=== PATIENT | male | born 1955 | race African-American/Black ===

== ENCOUNTER 2016-12-18 17:53 | Inpatient (IN) | payer MEDICAID ==
[~2016-12-18] VITALS: Ht 180.3 cm; Wt 39.0 kg
[2016-12-18] MEDS ORDERED: SODIUM CHLORIDE 0.9% 1,000 ML IV ONE ×2 (18:04→19:26)
[2016-12-18] MEDS ORDERED: METHYLPREDNISOLONE SOD SUCC 125 MG/2 ML VIAL IV STA (18:06)
[2016-12-18] MEDS ORDERED: IPRATROPIUM BROMIDE (0.02%) 0.5MG/2.5ML NEB HHN STA (18:06)
[2016-12-18] MEDS ORDERED: ALBUTEROL (0.083%) 2.5MG/3ML NEB HHN STA (18:06)
[2016-12-18 18:31] LABS: BG BASE EXCESS -6.6 mmol/L (-2.0-2.0); BG CARBOXYHEMOGLOBIN 0.8 % (0.5-1.5); BG DEOXYHEMOGLOBIN 6.5 % (0.0-5.0); BG FRACTION INSPIRED OXYGEN 28; BG HCO3 ACT 17.5 mmol/L (22.0-26.0); BG METHEMOGLOBIN 0.3 % (0.0-1.5); BG OXYGEN SATURATION 93.4 % (92.0-98.5); BG OXYHEMOGLOBIN 92.4 % (94.0-97.0); BG PCO2 31.8 mmHg (35.0-45.0); BG PH 7.359 (7.350-7.450); BG PO2 71.8 mmHg (75.0-100.0); BG SAMPLE SITE RIGHT BRACHIAL; BG TOTAL HEMOGLOBIN 16.7 g/dL (12.0-18.0); BG VENT MODE NASAL CANNULA
[2016-12-18 19:09] LABS: BASOPHILS % 0.4 % (0.0-2.0); DIFFERENTIAL COMMENT 0; EOSINOPHILS % 0.2 % (0.0-5.0); HEMATOCRIT. 49.7 % (42.0-52.0); HEMOGLOBIN. 16.2 g/dL (14.0-18.0); LYMPHOCYTES % 8.4 % (20.0-50.0); MEAN CORPUSCULAR HEMOGLOBIN 25.9 pg (28.0-32.0); MEAN CORPUSCULAR HGB CONC 32.6 g/dL (31.0-37.0); MEAN CORPUSCULAR VOLUME 79.5 fL (80.0-94.0); MEAN PLATELET VOLUME 10.2 fl (7.4-10.4); MONOCYTES % 9.2 % (2.0-8.0); NEUTROPHILS % 81.8 % (40.0-76.0); PLATELET 178 x1000/uL (130-400); RED BLOOD CELL COUNT 6.25 mill/uL (4.7-6.1); RED CELL DISTRIBUTION WIDTH 14.3 % (11.6-14.6); WHITE BLOOD COUNT 11.7 x1000/uL (4.5-11.0)
[2016-12-18 19:10] LABS: AMMONIA 19 uMol/L (<32); INDEX HEMOLYSI 1 (1-3)
[2016-12-18 19:18] LABS: ACETAMINOPHEN < 2 ug/mL (10-30); ALANINE AMINOTRANSFERASE 49 IU/L (13-61); ALBUMIN 4.1 g/dL (3.4-5.0); ANION GAP 22; CALCIUM 9.5 mg/dL (8.5-10.1); CARBON DIOXIDE 19 mEq/L (21-32); CHLORIDE 106 mEq/L (98-107); ETHANOL BLOOD < 10 mg/dL; INDEX HEMOLYSI 1 (1-3); INDEX ICTERIC 1 (1-4); INDEX LIPEMIC 1 (1-3); NT PRO B-TYPE NATRIURETIC PEP 142 pg/mL (5-125); TROPONIN I 0.02 ng/mL (0.00-0.04); UREA NITROGEN BLOOD 27 mg/dL (7-21); eGFR > 60 mL/min (>60)
[2016-12-18 21:19] LABS: CLARITY URINE CLEAR (CLEAR); COLOR URINE YELLOW (YELLOW); GLUCOSE URINE 3+ (NEGATIVE); KETONES URINE 4+ (NEGATIVE); LEUKOCYTE ESTERASE URINE NEGATIVE (NEGATIVE); NITRITE URINE NEGATIVE (NEGATIVE); OCCULT BLOOD URINE NEGATIVE (NEGATIVE); PH URINE 5.5 (4.5-8.0); PROTEIN URINE 1+ (NEGATIVE); SPECIFIC GRAVITY URINE 1.029 (1.005-1.030)
[2016-12-18 21:32] LABS: *AMPHETAMINES SCREEN URINE NEGATIVE (NEGATIVE); *BARBITURATES SCREEN URINE NEGATIVE (NEGATIVE); *BENZODIAZEPINES SCREEN URINE NEGATIVE (NEGATIVE); *COCAINE SCREEN URINE NEGATIVE (NEGATIVE); CANNABINOID URINE SCREEN NEGATIVE (NEGATIVE); ECSTASY MDMA SCREEN URINE NEGATIVE (NEGATIVE); METHADONE URINE SCREEN NEGATIVE (NEGATIVE); OPIATES URINE SCREEN PRESUMTIVE POSITIVE (NEGATIVE); PHENCYCLIDINE URINE SCREEN NEGATIVE (NEGATIVE)
[2016-12-18 21:39] LABS: BACTERIA URINE TRACE; SQUAMOUS EPITHELIAL CELL URINE RARE /lpf (RARE/1+)
[2016-12-18 21:40] LABS: RBC URINE NONE SEEN /hpf (0-2); WBC URINE 0-2 /hpf (0-2)
[2016-12-18] MEDS ORDERED: GUAIFENESIN 200MG/10ML SUGAR FREE UDC PO PRN (22:45)
[2016-12-18] MEDS ORDERED: IPRATROPIUM/ALBUTEROL 0.5-3(2.5)MG/3ML NEB INH PRN (22:45)
[2016-12-18] MEDS ORDERED: DOCUSATE SODIUM 100MG CAPSULE PO PRN (22:45)
[2016-12-18] MEDS ORDERED: ONDANSETRON HCL 4MG/2ML VIAL IV PRN (22:45)
[2016-12-18] MEDS ORDERED: CLONIDINE 0.1MG TABLET PO PRN (22:45)
[2016-12-18] MEDS ORDERED: INSULIN REGULAR (HUMULIN R) 300UNITS/3ML IV ONE (23:15)
[2016-12-19] VITALS: BP 128/88
[2016-12-19] MEDS ORDERED: ENOXAPARIN 40MG/0.4ML SYR SUBCUT SCH
[2016-12-19 00:01] LABS: AMMONIA 29 uMol/L (<32)
[2016-12-19] MEDS ORDERED: FLUT1DIS INH (00:44)
[2016-12-19] MEDS ORDERED: CLON0.1T PO (00:46)
[2016-12-19] MEDS ORDERED: COR12 PO (00:47)
[2016-12-19] MEDS ORDERED: GABA-531 PO (00:48)
[2016-12-19] MEDS ORDERED: KEPP500 PO (00:49)
[2016-12-19] MEDS ORDERED: ATOR10TA PO (00:50)
[2016-12-19] MEDS ORDERED: LISI10TA5 PO (00:51)
[2016-12-19] MEDS ORDERED: FAMO-134 PO (00:52)
[2016-12-19] MEDS ORDERED: DIGO250T81 PO (00:53)
[2016-12-19] MEDS ORDERED: MILK OF MAGNESIA PO (00:57)
[2016-12-19] MEDS ORDERED: NORCO PO (01:04)
[2016-12-19] MEDS ORDERED: ACET-2178 PO (01:07)
[2016-12-19] MEDS ORDERED: RISP1 PO (01:08)
[2016-12-19] MEDS ORDERED: ATIVAN PO (01:09)
[2016-12-19] MEDS ORDERED: CLON1TAB PO (01:10)
[2016-12-19] MEDS ORDERED: DEXTROSE 50% WATER 50ML SYRINGE IV PRN (01:30)
[2016-12-19] MEDS ORDERED: HALOPERIDOL LACTATE 5MG/ML VIAL IM PRN (01:30)
[2016-12-19] MEDS ORDERED: CLONIDINE 0.1MG TABLET PO PRN (02:15)
[2016-12-19] MEDS ORDERED: INSULIN LISPRO 100 UNITS/ML SUBCUT NR (02:37)
[2016-12-19] MEDS ORDERED: SODIUM CHLORIDE 0.9% 1,000 ML IV SCH (02:45)
[2016-12-19 04:00] VITALS: BP 136/88
[2016-12-19] MEDS: BLOOD SUGAR DIAGNOSTIC STRIP TEST SCH ×4 (05:34→23:11)
[2016-12-19] MEDS: INSULIN LISPRO 100 UNITS/ML SUBCUT SCH ×4 (05:36→23:11)
[2016-12-19 06:51] LABS: HEMATOCRIT. 41.9 % (42.0-52.0); HEMOGLOBIN. 13.5 g/dL (14.0-18.0); MEAN CORPUSCULAR HEMOGLOBIN 25.8 pg (28.0-32.0); MEAN CORPUSCULAR HGB CONC 32.3 g/dL (31.0-37.0); MEAN CORPUSCULAR VOLUME 79.7 fL (80.0-94.0); MEAN PLATELET VOLUME 10.4 fl (7.4-10.4); PLATELET 168 x1000/uL (130-400); RED BLOOD CELL COUNT 5.25 mill/uL (4.7-6.1); RED CELL DISTRIBUTION WIDTH 13.9 % (11.6-14.6); WHITE BLOOD COUNT 9.9 x1000/uL (4.5-11.0)
[2016-12-19 07:08] LABS: DIFFERENTIAL COMMENT 1
[2016-12-19 07:56] LABS: ALANINE AMINOTRANSFERASE 35 IU/L (13-61); ALBUMIN 3.2 g/dL (3.4-5.0); ANION GAP 20; CALCIUM 8.5 mg/dL (8.5-10.1); CARBON DIOXIDE 17 mEq/L (21-32); CHLORIDE 114 mEq/L (98-107); CREATINE KINASE 472 IU/L (39-308); INDEX HEMOLYSI 1 (1-3); INDEX ICTERIC 1 (1-4); INDEX LIPEMIC 1 (1-3); NT PRO B-TYPE NATRIURETIC PEP 200 pg/mL (5-125); UREA NITROGEN BLOOD 29 mg/dL (7-21); eGFR > 60 mL/min (>60)
[2016-12-19 08:06] LABS: DIGOXIN 0.8 ng/mL (0.9-2.0); THYROID STIMULATING HORMONE 0.05 uIU/mL (0.36-3.74)
[2016-12-19] MEDS: CARVEDILOL 12.5MG TABLET PO SCH ×2 (09:00→20:46)
[2016-12-19] MEDS: LISINOPRIL 10MG TABLET PO SCH ×2 (09:00→20:45)
[2016-12-19 10:00] VITALS: BP 108/79
[2016-12-19] MEDS: LEVETIRACETAM 500MG/5ML CUP PO SCH ×2 (10:09→20:45)
[2016-12-19] MEDS: GABAPENTIN 300MG CAPSULE PO SCH ×4 (10:09→17:53)
[2016-12-19 11:45] LABS: MAGNESIUM 2.2 mg/dL (1.8-2.4); TROPONIN I 0.03 ng/mL (0.00-0.04)
[2016-12-19 12:36] VITALS: BP 111/64
[2016-12-19 12:53] LABS: PLATELET ESTIMATE NORMAL
[2016-12-19] MEDS: SODIUM CHLORIDE 0.45% 1,000 ML IV SCH (13:11)
[2016-12-19 16:00] VITALS: BP 117/71
[2016-12-19] MEDS: DIGOXIN 250MCG TABLET PO SCH ×2 (17:53→18:00)
[2016-12-19 20:00] VITALS: BP 125/69
[2016-12-19] MEDS: FAMOTIDINE 20MG TABLET PO SCH (20:45)
[2016-12-20] VITALS: BP 120/60
[2016-12-20] MEDS: HALOPERIDOL LACTATE 5MG/ML VIAL IM PRN ×3 (00:51→23:49)
[2016-12-20 04:00] VITALS: BP 126/75
[2016-12-20] MEDS: BLOOD SUGAR DIAGNOSTIC STRIP TEST SCH ×5 (06:19→21:41)
[2016-12-20] MEDS: INSULIN LISPRO 100 UNITS/ML SUBCUT SCH ×4 (06:55→21:41)
[2016-12-20 08:00] VITALS: BP 132/82
[2016-12-20] MEDS: SODIUM CHLORIDE 0.45% 1,000 ML IV SCH ×2 (08:00→23:46)
[2016-12-20] MEDS: LISINOPRIL 10MG TABLET PO SCH ×4 (09:00→21:35)
[2016-12-20] MEDS: CARVEDILOL 12.5MG TABLET PO SCH ×4 (09:00→21:34)
[2016-12-20] MEDS: LEVETIRACETAM 500MG/5ML CUP PO SCH ×4 (09:00→21:39)
[2016-12-20] MEDS ORDERED: INSULIN REGULAR (HUMULIN R) UD 100 UNITS/ML SYR SUBCUT SCH (10:00)
[2016-12-20 10:11] LABS: BASOPHILS % 0.4 % (0.0-2.0); DIFFERENTIAL COMMENT 0; EOSINOPHILS % 0.2 % (0.0-5.0); HEMATOCRIT. 42.8 % (42.0-52.0); HEMOGLOBIN. 13.9 g/dL (14.0-18.0); LYMPHOCYTES % 11.7 % (20.0-50.0); MEAN CORPUSCULAR HEMOGLOBIN 25.8 pg (28.0-32.0); MEAN CORPUSCULAR HGB CONC 32.4 g/dL (31.0-37.0); MEAN CORPUSCULAR VOLUME 79.5 fL (80.0-94.0); MEAN PLATELET VOLUME 10.7 fl (7.4-10.4); MONOCYTES % 12.7 % (2.0-8.0); PLATELET 173 x1000/uL (130-400); RED BLOOD CELL COUNT 5.38 mill/uL (4.7-6.1); RED CELL DISTRIBUTION WIDTH 14.2 % (11.6-14.6); WHITE BLOOD COUNT 11.6 x1000/uL (4.5-11.0)
[2016-12-20 10:13] LABS: CHLORIDE 112 mEq/L (98-107); INDEX HEMOLYSI 1 (1-3); INDEX ICTERIC 1 (1-4); INDEX LIPEMIC 1 (1-3)
[2016-12-20 10:16] LABS: INR 1.1; PROTHROMBIN TIME 11.2 sec
[2016-12-20 10:22] LABS: ALANINE AMINOTRANSFERASE 32 IU/L (13-61); ALBUMIN 3.2 g/dL (3.4-5.0); ANION GAP 11; CALCIUM 8.6 mg/dL (8.5-10.1); CARBON DIOXIDE 25 mEq/L (21-32); PHOSPHORUS 2.3 mg/dL (2.5-4.9); UREA NITROGEN BLOOD 21 mg/dL (7-21); eGFR > 60 mL/min (>60)
[2016-12-20 12:00] VITALS: BP 91/57
[2016-12-20] MEDS ORDERED: INSULIN DETEMIR UD 100 UNITS/ML SYR SUBCUT NR (15:30)
[2016-12-20 15:35] LABS: T3 FREE 1.66 pg/ml (2.18-3.98); T4 FREE 1.14 ng/dL (0.76-1.46)
[2016-12-20 16:00] VITALS: BP 133/87
[2016-12-20] MEDS: DIGOXIN 250MCG TABLET PO SCH (18:04)
[2016-12-20 20:00] VITALS: BP 159/100
[2016-12-20] MEDS: ACETAMINOPHEN 325MG TABLET PO PRN (21:33)
[2016-12-20] MEDS: FAMOTIDINE 20MG TABLET PO SCH (21:34)
[2016-12-20] MEDS ORDERED: INSULIN DETEMIR UD 100 UNITS/ML SYR SUBCUT SCH (22:00)
[2016-12-21] VITALS: BP 130/85
[2016-12-21 04:00] VITALS: BP 119/76
[2016-12-21] MEDS: BLOOD SUGAR DIAGNOSTIC STRIP TEST SCH ×6 (06:39→21:26)
[2016-12-21 06:41] LABS: ANION GAP 10; CALCIUM 8.7 mg/dL (8.5-10.1); CARBON DIOXIDE 28 mEq/L (21-32); CHLORIDE 108 mEq/L (98-107); INDEX HEMOLYSI 1 (1-3); INDEX ICTERIC 1 (1-4); INDEX LIPEMIC 1 (1-3); UREA NITROGEN BLOOD 14 mg/dL (7-21); eGFR > 60 mL/min (>60)
[2016-12-21 06:55] LABS: BASOPHILS % 0.3 % (0.0-2.0); DIFFERENTIAL COMMENT 0; EOSINOPHILS % 1.3 % (0.0-5.0); HEMATOCRIT. 40.1 % (42.0-52.0); HEMOGLOBIN. 13.1 g/dL (14.0-18.0); LYMPHOCYTES % 19.2 % (20.0-50.0); MEAN CORPUSCULAR HEMOGLOBIN 25.9 pg (28.0-32.0); MEAN CORPUSCULAR HGB CONC 32.7 g/dL (31.0-37.0); MEAN CORPUSCULAR VOLUME 79.4 fL (80.0-94.0); MEAN PLATELET VOLUME 10.3 fl (7.4-10.4); MONOCYTES % 10.9 % (2.0-8.0); NEUTROPHILS % 68.3 % (40.0-76.0); PLATELET 148 x1000/uL (130-400); RED BLOOD CELL COUNT 5.05 mill/uL (4.7-6.1); RED CELL DISTRIBUTION WIDTH 14.1 % (11.6-14.6); WHITE BLOOD COUNT 7.9 x1000/uL (4.5-11.0)
[2016-12-21 08:40] VITALS: BP 128/76
[2016-12-21] MEDS: INSULIN LISPRO 100 UNITS/ML SUBCUT SCH ×4 (08:42→21:32)
[2016-12-21] MEDS: LINAGLIPTIN 5MG TABLET PO SCH (08:43)
[2016-12-21] MEDS: LISINOPRIL 10MG TABLET PO SCH ×2 (08:43→21:00)
[2016-12-21] MEDS: LEVETIRACETAM 500MG/5ML CUP PO SCH (08:51)
[2016-12-21] MEDS: CARVEDILOL 12.5MG TABLET PO SCH ×2 (09:00→21:00)
[2016-12-21] MEDS ORDERED: POTASSIUM CHLORIDE 20MEQ TABLET SR PO NR (11:30)
[2016-12-21 12:46] VITALS: BP 113/80
[2016-12-21] MEDS ORDERED: ONDANSETRON HCL 4MG/2ML VIAL IV PRN (15:30)
[2016-12-21] MEDS: DIGOXIN 250MCG TABLET PO SCH (18:00)
[2016-12-21 18:26] LABS: BG BASE EXCESS -0.2 mmol/L (-2.0-2.0); BG CARBOXYHEMOGLOBIN 0.6 % (0.5-1.5); BG DEOXYHEMOGLOBIN 6.4 % (0.0-5.0); BG FRACTION INSPIRED OXYGEN 21; BG HCO3 ACT 24.3 mmol/L (22.0-26.0); BG METHEMOGLOBIN 0.2 % (0.0-1.5); BG OXYGEN SATURATION 93.5 % (92.0-98.5); BG OXYHEMOGLOBIN 92.8 % (94.0-97.0); BG PCO2 39.3 mmHg (35.0-45.0); BG PH 7.409 (7.350-7.450); BG PO2 68.2 mmHg (75.0-100.0); BG SAMPLE SITE RIGHT RADIAL; BG TOTAL HEMOGLOBIN 14.8 g/dL (12.0-18.0); BG VENT MODE ROOM AIR
[2016-12-21 20:00] VITALS: BP 164/95
[2016-12-21] MEDS: ENALAPRIL 2.5MG/2ML VIAL 2ML IV SCH (21:32)
[2016-12-21] MEDS: DEXT 5%/0.45% NACL KCL 10MEQ/L 1,000 ML IV SCH (21:33)
[2016-12-21] MEDS: FAMOTIDINE 20MG/2ML VIAL IV SCH (21:33)
[2016-12-21] MEDS: LEVETIRACETAM 500 MG in SODIUM CHLORIDE 0.9% 100 ML IV SCH (21:35)
[2016-12-21] MEDS: INSULIN DETEMIR UD 100 UNITS/ML SYR SUBCUT SCH (21:35)
[2016-12-22] VITALS: BP 154/98
[2016-12-22] MEDS: ENALAPRIL 2.5MG/2ML VIAL 2ML IV SCH ×4 (00:32→18:00)
[2016-12-22 04:00] VITALS: BP 151/81
[2016-12-22 06:01] LABS: BASOPHILS % 0.4 % (0.0-2.0); DIFFERENTIAL COMMENT 0; EOSINOPHILS % 2.7 % (0.0-5.0); HEMATOCRIT. 40.1 % (42.0-52.0); HEMOGLOBIN. 13.4 g/dL (14.0-18.0); LYMPHOCYTES % 18.6 % (20.0-50.0); MEAN CORPUSCULAR HEMOGLOBIN 26.2 pg (28.0-32.0); MEAN CORPUSCULAR HGB CONC 33.3 g/dL (31.0-37.0); MEAN CORPUSCULAR VOLUME 78.6 fL (80.0-94.0); MEAN PLATELET VOLUME 9.6 fl (7.4-10.4); MONOCYTES % 13.1 % (2.0-8.0); NEUTROPHILS % 65.2 % (40.0-76.0); PLATELET 148 x1000/uL (130-400); RED BLOOD CELL COUNT 5.11 mill/uL (4.7-6.1); RED CELL DISTRIBUTION WIDTH 14.2 % (11.6-14.6); WHITE BLOOD COUNT 6.9 x1000/uL (4.5-11.0)
[2016-12-22] MEDS: BLOOD SUGAR DIAGNOSTIC STRIP TEST SCH ×4 (06:59→21:40)
[2016-12-22] MEDS: INSULIN LISPRO 100 UNITS/ML SUBCUT SCH ×7 (07:20→21:39)
[2016-12-22 08:00] VITALS: BP 176/100
[2016-12-22 08:09] LABS: ANION GAP 12; CALCIUM 8.7 mg/dL (8.5-10.1); CARBON DIOXIDE 26 mEq/L (21-32); CHLORIDE 108 mEq/L (98-107); INDEX HEMOLYSI 1 (1-3); INDEX ICTERIC 1 (1-4); INDEX LIPEMIC 1 (1-3); PHOSPHORUS 2.6 mg/dL (2.5-4.9); UREA NITROGEN BLOOD 9 mg/dL (7-21); eGFR > 60 mL/min (>60)
[2016-12-22] MEDS: LISINOPRIL 10MG TABLET PO SCH ×2 (11:15→21:40)
[2016-12-22] MEDS: PANTOPRAZOLE SODIUM 40 MG/VIAL IV SCH (11:15)
[2016-12-22] MEDS: LINAGLIPTIN 5MG TABLET PO SCH (11:15)
[2016-12-22] MEDS: CARVEDILOL 12.5MG TABLET PO SCH ×2 (11:15→21:40)
[2016-12-22] MEDS: LEVETIRACETAM 500 MG in SODIUM CHLORIDE 0.9% 100 ML IV SCH ×2 (11:15→21:38)
[2016-12-22 12:00] VITALS: BP 164/117
[2016-12-22 14:20] LABS: *CREATININE RANDOM URINE 215.6 mg/dL (Not Estab.); MICROALBUMIN RANDOM URINE 282.7 ug/mL (Not Estab.); MICROALBUMIN/CREATININE RATIO 131.1 mg/g creat (0.0-30.0)
[2016-12-22] MEDS: CLOPIDOGREL 75MG TABLET PO SCH (15:18)
[2016-12-22 16:00] VITALS: BP 96/65
[2016-12-22] MEDS: DIGOXIN 250MCG TABLET PO SCH (18:49)
[2016-12-22 20:00] VITALS: BP 121/76
[2016-12-22] MEDS: INSULIN DETEMIR UD 100 UNITS/ML SYR SUBCUT SCH (21:39)
[2016-12-22] MEDS: FAMOTIDINE 20MG/2ML VIAL IV SCH (21:40)
[2016-12-22] MEDS: DEXT 5%/0.45% NACL KCL 10MEQ/L 1,000 ML IV SCH (21:48)
[2016-12-22] MEDS: ACETAMINOPHEN 325MG TABLET PO PRN (21:54)
[2016-12-23] VITALS: BP 118/73
[2016-12-23] MEDS: ENALAPRIL 2.5MG/2ML VIAL 2ML IV SCH ×4 (00:26→18:00)
[2016-12-23 04:00] VITALS: BP 107/62
[2016-12-23] MEDS: BLOOD SUGAR DIAGNOSTIC STRIP TEST SCH ×3 (06:22→17:20)
[2016-12-23 06:39] LABS: ANION GAP 9; CALCIUM 8.3 mg/dL (8.5-10.1); CARBON DIOXIDE 27 mEq/L (21-32); CHLORIDE 109 mEq/L (98-107); INDEX HEMOLYSI 1 (1-3); INDEX ICTERIC 1 (1-4); INDEX LIPEMIC 1 (1-3); UREA NITROGEN BLOOD 10 mg/dL (7-21); eGFR > 60 mL/min (>60)
[2016-12-23 06:57] LABS: BASOPHILS % 0.4 % (0.0-2.0); DIFFERENTIAL COMMENT 0; EOSINOPHILS % 4.1 % (0.0-5.0); HEMATOCRIT. 38.1 % (42.0-52.0); HEMOGLOBIN. 12.6 g/dL (14.0-18.0); LYMPHOCYTES % 21.1 % (20.0-50.0); MEAN CORPUSCULAR HGB CONC 33.1 g/dL (31.0-37.0); MEAN CORPUSCULAR VOLUME 78.3 fL (80.0-94.0); MEAN PLATELET VOLUME 9.5 fl (7.4-10.4); MONOCYTES % 11.7 % (2.0-8.0); NEUTROPHILS % 62.7 % (40.0-76.0); PLATELET 142 x1000/uL (130-400); RED BLOOD CELL COUNT 4.86 mill/uL (4.7-6.1); RED CELL DISTRIBUTION WIDTH 13.9 % (11.6-14.6); WHITE BLOOD COUNT 6.2 x1000/uL (4.5-11.0)
[2016-12-23 08:00] VITALS: BP 116/73
[2016-12-23] MEDS: PANTOPRAZOLE SODIUM 40 MG/VIAL IV SCH (09:42)
[2016-12-23] MEDS: LEVETIRACETAM 500 MG in SODIUM CHLORIDE 0.9% 100 ML IV SCH (09:42)
[2016-12-23] MEDS: CLOPIDOGREL 75MG TABLET PO SCH (09:44)
[2016-12-23] MEDS: INSULIN LISPRO 100 UNITS/ML SUBCUT SCH ×6 (09:44→17:50)
[2016-12-23] MEDS: CARVEDILOL 12.5MG TABLET PO SCH (09:45)
[2016-12-23] MEDS: LISINOPRIL 10MG TABLET PO SCH (09:45)
[2016-12-23] MEDS: LINAGLIPTIN 5MG TABLET PO SCH (09:45)
[2016-12-23] MEDS ORDERED: POTASSIUM CHLORIDE 20MEQ TABLET SR PO SCH (10:00)
[2016-12-23 12:00] VITALS: BP 130/79
[2016-12-23] MEDS: ACETAMINOPHEN 325MG TABLET PO PRN (13:40)
[2016-12-23 15:58] VITALS: BP 130/79
[2016-12-23] MEDS: DIGOXIN 250MCG TABLET PO SCH (18:00)
[2016-12-23 19:29] VITALS: BP 109/72
== END 2016-12-23 19:35 | DRG 45 ==
LOC: ER 18:11 → 6WST 22:33
PROVIDERS: ADMIT Specialist; ATTEND Specialist
DX: I63.9 Cerebral infarction, unspecified (principal); G93.41 Metabolic encephalopathy; E13.10 Other specified diabetes mellitus with ketoacidosis without coma; F03.90 Unspecified dementia, unspecified severity, without behavioral disturbance, psychotic disturbance, mood disturbance, and anxiety; I11.0 Hypertensive heart disease with heart failure; I50.22 Chronic systolic (congestive) heart failure; I42.9 Cardiomyopathy, unspecified; I25.10 Atherosclerotic heart disease of native coronary artery without angina pectoris; G93.89 Other specified disorders of brain; I48.0 Paroxysmal atrial fibrillation; E78.5 Hyperlipidemia, unspecified; E03.9 Hypothyroidism, unspecified; I48.92 Unspecified atrial flutter; J44.9 Chronic obstructive pulmonary disease, unspecified; Z90.2 Acquired absence of lung [part of]; I69.354 Hemiplegia and hemiparesis following cerebral infarction affecting left non-dominant side; Z91.013 Allergy to seafood; Z87.891 Personal history of nicotine dependence; Z74.01 Bed confinement status
CPT/HCPCS: 36415; 36600; 51702; 70450; 70551; 71010; 80048; 80053; 80061; 80162; 80305; 80307; 80329; 81001; 82010; 82043; 82140; 82375; 82550; 82570; 82805; 82962; 83036; 83519; 83520; 83605; 83735; 83880; 84100; 84439; 84443; 84481; 84484; 84681; 85025; 85610; 85730; 87040; 87086; 92610; 93005; 93306; 93880; 93970; 94640; 96361; 96374; 96375; 97163; 97166; 97530; 99285; C9113; G0482; J1630; J1650; J1815; J1953; J2930; J3490; J7030; J7050; J7611; J7620; A4315

== ENCOUNTER 2017-01-03 10:27 | Emergency (ER) | payer MEDICAID ==
[~2017-01-03] VITALS: Ht 172.7 cm; Wt 90.0 kg
[~2017-01-03 10:27] MED LIST: ACET-2178 PO; ATIVAN PO; ATOR10TA PO; CLON0.1T PO; CLON1TAB PO; COR12 PO; DIGO250T81 PO; FAMO-134 PO; FLUT1DIS INH; GABA-531 PO; KEPP500 PO; LISI10TA5 PO; MILK OF MAGNESIA PO; NORCO PO; RISP1 PO
[2017-01-03] MEDS ORDERED: SODIUM CHLORIDE 0.9% 1,000 ML IV ONE ×2 (10:43→14:24)
[2017-01-03 11:17] LABS: BG BASE EXCESS -6.7 mmol/L (-2.0-2.0); BG CARBOXYHEMOGLOBIN 0.6 % (0.5-1.5); BG FRACTION INSPIRED OXYGEN 21; BG METHEMOGLOBIN 0.2 % (0.0-1.5); BG OXYGEN SATURATION 92.9 % (92.0-98.5); BG OXYHEMOGLOBIN 92.2 % (94.0-97.0); BG PCO2 34.3 mmHg (35.0-45.0); BG PH 7.339 (7.350-7.450); BG PO2 73.1 mmHg (75.0-100.0); BG SAMPLE SITE RIGHT BRACHIAL; BG TOTAL HEMOGLOBIN 15.3 g/dL (12.0-18.0); BG VENT MODE ROOM AIR
[2017-01-03 11:27] LABS: HEMATOCRIT. 44.8 % (42.0-52.0); HEMOGLOBIN. 14.2 g/dL (14.0-18.0); MEAN CORPUSCULAR HEMOGLOBIN 25.6 pg (28.0-32.0); MEAN CORPUSCULAR VOLUME 80.6 fL (80.0-94.0); MEAN PLATELET VOLUME 9.6 fl (7.4-10.4); PLATELET 193 x1000/uL (130-400); RED BLOOD CELL COUNT 5.55 mill/uL (4.7-6.1); RED CELL DISTRIBUTION WIDTH 14.4 % (11.6-14.6)
[2017-01-03 11:35] LABS: INR 1.1; PROTHROMBIN TIME 11.1 sec
[2017-01-03 11:40] LABS: CARBON DIOXIDE 22 mEq/L (21-32); CHLORIDE 102 mEq/L (98-107)
[2017-01-03 11:40] LABS: CLARITY URINE CLEAR (CLEAR); COLOR URINE DARK YELLOW (YELLOW); GLUCOSE URINE 3+ (NEGATIVE); KETONES URINE TRACE (NEGATIVE); LEUKOCYTE ESTERASE URINE NEGATIVE (NEGATIVE); NITRITE URINE NEGATIVE (NEGATIVE); OCCULT BLOOD URINE 2+ (NEGATIVE); PROTEIN URINE 1+ (NEGATIVE); SPECIFIC GRAVITY URINE 1.021 (1.005-1.030)
[2017-01-03 11:43] LABS: BETA HYDROXYBUTYRATE 0.1 mMol/L (0.0-0.3)
[2017-01-03] MEDS ORDERED: INSULIN REGULAR (HUMULIN R) 300UNITS/3ML IV ONE (12:00)
[2017-01-03] MEDS ORDERED: SODIUM BICARBONATE 8.4% 1 MEQ/ML 50ML SYR IV ONE (12:00)
[2017-01-03] MEDS ORDERED: CALCIUM CHLORIDE 1GM/10ML SYR IV ONE (12:00)
[2017-01-03 12:02] LABS: PLATELET ESTIMATE NORMAL
[2017-01-03] MEDS ORDERED: PIPERACILLIN/TAZ 3.375G PREMIX 50 ML IV ONE (12:45)
[2017-01-03] MEDS ORDERED: SODIUM CHLORIDE 0.45% 1,000 ML IV SCH (12:53)
[2017-01-03] MEDS ORDERED: HYDROCODONE/ACETAMINOPHEN 5/325MG TABLET PO PRN (13:00)
[2017-01-03] MEDS ORDERED: GUAIFENESIN 200MG/10ML SUGAR FREE UDC PO PRN (13:00)
[2017-01-03] MEDS ORDERED: IPRATROPIUM/ALBUTEROL 0.5-3(2.5)MG/3ML NEB INH PRN (13:00)
[2017-01-03] MEDS ORDERED: MAGNESIUM/ALUMINUM HYDROXIDE/SIMETHICONE 30ML UDC PO PRN (13:00)
[2017-01-03] MEDS ORDERED: DIPHENHYDRAMINE 50MG/ML VIAL IV PRN (13:00)
[2017-01-03] MEDS ORDERED: DOCUSATE SODIUM 100MG CAPSULE PO PRN (13:00)
[2017-01-03] MEDS ORDERED: LORAZEPAM 2MG/ML CPJ IV PRN (13:00)
[2017-01-03] MEDS ORDERED: ENOXAPARIN 40MG/0.4ML SYR SUBCUT SCH (13:00)
[2017-01-03] MEDS ORDERED: HYDROMORPHONE HCL/PF 2MG/ML CPJ IV PRN (13:00)
[2017-01-03] MEDS ORDERED: CLONIDINE 0.1MG TABLET PO PRN (13:00)
[2017-01-03] MEDS ORDERED: NA PHOS,M-B/NA PHOS,DI-BA ENEMA 118ML PR PRN (13:00)
[2017-01-03] MEDS ORDERED: ACETAMINOPHEN 325MG TABLET PO PRN (13:00)
[2017-01-03] MEDS ORDERED: ONDANSETRON HCL 4MG/2ML VIAL IV PRN (13:00)
[2017-01-03] MEDS ORDERED: VECURONIUM BROMIDE 10 MG/VIAL IV ONE ×2 (13:34→13:45)
[2017-01-03] MEDS ORDERED: ETOMIDATE 2MG/ML 10ML VIAL IV ONE (13:34)
[2017-01-03] MEDS ORDERED: STERILE WATER FOR INJECTION 10ML VIAL ONE (13:34)
[2017-01-03] MEDS ORDERED: PROPOFOL 10MG/ML 100ML 100 ML IV ONE (13:45)
[2017-01-03] MEDS ORDERED: PHENYTOIN SODIUM 500 MG in SODIUM CHLORIDE 0.9% 50 ML IV ONE (13:45)
[2017-01-03] MEDS ORDERED: MIDAZOLAM HCL 50 MG in DEXTROSE 5% WATER 40 ML IV ONE (13:45)
[2017-01-03] MEDS ORDERED: NOREPINEPHRINE 4 MG in DEXT 5% WATER 246 ML IV ONE ×2 (14:30→14:45)
[2017-01-03 14:48] LABS: BG CARBOXYHEMOGLOBIN 0.5 % (0.5-1.5); BG DEOXYHEMOGLOBIN 3.5 % (0.0-5.0); BG FRACTION INSPIRED OXYGEN 60; BG HCO3 ACT 19.4 mmol/L (22.0-26.0); BG METHEMOGLOBIN 0.2 % (0.0-1.5); BG OXYGEN SATURATION 96.5 % (92.0-98.5); BG OXYHEMOGLOBIN 95.8 % (94.0-97.0); BG PCO2 34.5 mmHg (35.0-45.0); BG PH 7.368 (7.350-7.450); BG PO2 91.7 mmHg (75.0-100.0); BG SAMPLE SITE RIGHT BRACHIAL; BG TIDAL VOLUME(mL) 600 mL; BG TOTAL HEMOGLOBIN 14.9 g/dL (12.0-18.0); BG VENT MODE VENT - A/C; BG VENT RATE 18 set
[2017-01-03 15:00] LABS: TROPONIN I 0.39 ng/mL (0.00-0.04)
[2017-01-03 15:06] LABS: DIGOXIN 1.4 ng/mL (0.9-2.0)
[2017-01-03] MEDS ORDERED: LABETALOL 5MG/ML SYR 20 MG/4 ML SYRINGE IV ONE (15:30)
[2017-01-03 15:51] VITALS: BP 136/97
[2017-01-04] MEDS ORDERED: ASPIRIN 81MG EC TABLET PO SCH (09:00)
== END 2017-01-03 15:58 | disposition short-term general hospital (02) ==
LOC: ER 10:36
DX: I60.9 Nontraumatic subarachnoid hemorrhage, unspecified (principal); J44.9 Chronic obstructive pulmonary disease, unspecified; I25.2 Old myocardial infarction; N17.9 Acute kidney failure, unspecified; G92 Toxic encephalopathy; A41.9 Sepsis, unspecified organism; I13.10 Hypertensive heart and chronic kidney disease without heart failure, with stage 1 through stage 4 chronic kidney disease, or unspecified chronic kidney disease; E11.22 Type 2 diabetes mellitus with diabetic chronic kidney disease; N18.9 Chronic kidney disease, unspecified; Z91.013 Allergy to seafood; Z79.899 Other long term (current) drug therapy; Z86.73 Personal history of transient ischemic attack (TIA), and cerebral infarction without residual deficits; E87.8 Other disorders of electrolyte and fluid balance, not elsewhere classified
CPT/HCPCS: 31500; 36415; 36569; 36600; 43753; 51702; 70450; 71010; 76937; 80048; 80053; 80162; 81001; 82010; 82375; 82805; 82962; 83605; 83690; 83735; 83880; 84484; 85025; 85610; 87040; 87086; 93005; 94002; 96365; 96375; 99291; A4216; C1752; C1887; J1165; J1815; J2250; J2543; J2704; J3490; J7030; Z7610; J7060; A4315